=== PATIENT | female | born 1990 | race Caucasian/White ===

== ENCOUNTER 2020-03-16 11:18 | Emergency (ER) | payer BC, SELFPAY ==
[2020-03-16 11:29] VITALS: BP 115/70; PULSE 86; RESP 18; TEMP 37.2; O2SAT 100
--- NOTE | 2020-03-16 12:30 | ED.SKABFB ---
HPI - Skin/Abscess/Foreign Bdy General Chief complaint: Skin/Abscess/Foreign Body Stated complaint: pain in breast/body aches/ Time Seen by Provider: 03/16/20 12:31 Source: patient Mode of arrival: ambulatory Limitations: no limitations History of Present Illness HPI narrative: Berkley Okeefe is a 29 yo female with mastitis of R breast- no fever, has been breast feeding for 8 months. R breast pain and nipple irritation- unable to fully express milk Related Data Home Medications Medication Instructions Recorded Confirmed Classic 03/16/20 norethindrone (contraceptive) mg 03/16/20 Allergies Allergy/AdvReac Type Severity Reaction Status Date / Time Sulfa (Sulfonamide Allergy Intermediate Rash Verified 03/16/20 11:35 Antibiotics) Review of Systems Review of Systems: Narrative: CONSTITUTIONAL: Denies fever, chills, sweats. EYES: Denies visual changes, redness, discharge. ENT: Denies rhinorrhea, congestion, sore throat, otalgia. CARDIOVASCULAR: Denies chest pain, palpitations, edema. RESPIRATORY: Denies dyspnea, wheezing, cough GASTROINTESTINAL: Denies abdominal pain, nausea, vomiting, diarrhea. GENITOURINARY: Denies dysuria, hematuria, abnormal discharge SKIN: Denies rash or itching. Right breast pain, express feeding NEUROLOGIC: Denies numbness, or focal weakness. PSYCHIATRIC: Denies anxiety or depression. [facility] Family History Family History Other No home medical services Social History Social History (Updated 03/16/20 @ 12:44 by Gracia Oliveira CNP) Smoking status: Never smoker Alcohol intake: current Comments At time of signature, I agree with nursing past medical, surgical, social and family history. There is no relevant family history pertinent to the presenting complaint. Exam Narrative: Exam Narrative: GENERAL: This is a well-nourished, well-developed patient, in mild distress. HEAD: normocephalic, atraumatic. EYES: Sclera clear/white. Vision is grossly intact. EARS: External ears normal, auditory canals clear and without drainage, TMs normal without perforation. Hearing grossly intact. NOSE: External nose normal without nasal discharge, nares without redness, no rhinorrhea. THROAT: Mucous membranes moist, posterior pharynx NECK: Neck supple, CARDIOVASCULAR: Regular rate and rhythm without murmurs, gallops, or rubs. RESPIRATORY: Clear to auscultation. Breath sounds equal bilaterally. No wheezes, rales, or rhonchi. GASTROINTESTINAL: Abdomen soft, SKIN: warm, intact with no suspicious lesions or rash, good texture and turgor. Reddened the right breast with palpation, right nipple erythema, unable to express milk NEURO: awake, alert, and oriented to person, place and time. There were no obvious focal neurologic abnormalities. Steady gait EXTREMITIES: Normal range of motion. BACK: Nontender without deformity Course Course Emergency Course: Started on abdominal cream to nipple 500 mg 1 TAB x10 days Warm soaks to right breast should attempt to express milk manually or with breast pump Follow-up with [facility] on Thursday Vital Signs Vital signs: Vital Signs Temperature 99.0 F 03/16/20 11:29 Pulse Rate 86 03/16/20 11:29 Respiratory Rate 18 03/16/20 11:29 Blood Pressure 115/70 03/16/20 11:29 Pulse Oximetry 100 03/16/20 11:29 Temperature 99.0 F 03/16/20 11:29 Pulse Rate 86 03/16/20 11:29 Respiratory Rate 18 03/16/20 11:29 Blood Pressure 115/70 03/16/20 11:29 Pulse Oximetry 100 03/16/20 11:29 MDM - Skin/Abscess/Foreign Bdy Differential Diagnosis Differential diagnosis: Likely abscess of skin or subcutaneous tissue, cellulitis and other (Mastitis) Discharge Plan Discharge Clinical Impression: Mastitis Patient Disposition: Home, Self-Care Condition: Stable Instructions: Antibiotic Form, Mastitis (ED) Additional Instructions: Use APNO cream(allyssa, be
== END 2020-03-16 13:11 | disposition home or self-care (01) ==
PROVIDERS: Emergency Provider Nurse Practitioner; PCP Internal Medicine Geriatric Medicine
DX: N61.0 Mastitis without abscess (principal)
CPT/HCPCS: 99213; G0463